=== PATIENT | male | born 1960 | race Caucasian/White ===

== ENCOUNTER 2025-06-04 15:25 | Outpatient (CLI) | payer MEDICARE, SELFPAY ==
--- NOTE | ~2025-06-04 | XR_ITS ---
EXAMINATION: XR chest 2V, 06/04/2025 15:44 CDT HISTORY: Cough COMPARISON: No comparisons available. Technique: 2 views obtained. Findings: The lungs are clear, no effusion. No pneumothorax. Heart is normal size. Mediastinal and hilar contours are within normal limits. Bony thorax no acute abnormality. Impression: No acute cardiopulmonary abnormality. Reviewed, dictated and finalized at location A. Impression: No acute cardiopulmonary abnormality.
== END 2025-06-04 15:26 | disposition home or self-care (01) ==
DX: K21.00 Gastro-esophageal reflux disease with esophagitis, without bleeding (principal); I10 Essential (primary) hypertension; E78.5 Hyperlipidemia, unspecified; R07.9 Chest pain, unspecified; R73.03 Prediabetes
CPT/HCPCS: 71046

== ENCOUNTER 2025-06-24 09:50 | Outpatient (CLI) | payer MEDICARE, SELFPAY ==
--- NOTE | 2025-06-24 | EST_ITS ---
Patient Info Name: John Asencio Age: 64 years : 1960 Gender: Male Ht: 67 in Wt: 204 lbs BSA: 2.12 m2 HR: 75 bpm BP: 141 / 90 mmHg Exam Date: 06/24/2025 10:02 AM Patient Status: O Admit Date: 06/24/2025 Exam Type: CA stress test treadmill A treadmill exercise stress test was performed. Staff Attending Provider: DR. PONCE Exercise Technologist: Magi Ventura Exercise Physician: Nolan Ponce DO Summary 1. 1. Negative Junior exercise stress test for ischemic ST changes by ECG criteria. 2. 2. Reduced functional capacity, achieving 7 METs of workload. 3. 3. Baseline hypertension with hypertensive response to exercise. 4. 4. Appropriate HR response to exercise. 5. 5. Appropriate HR recovery at 1 minute post exercise. 6. 6. No imaging with stress testing. 7. 7. Patient informed of the above results. Protocol: Junior Stress ECG Details Stage: REST Duration (min): 1 min : 49 sec Speed (mph): 0.0 Grade (%): 0 HR (bpm): 73 SBP (mmHg): 141 DBP (mmHg): 90 METS: --- Stage: REST Duration (min): 5 min : 27 sec Speed (mph): 0.0 Grade (%): 0 HR (bpm): 76 SBP (mmHg): 141 DBP (mmHg): 90 METS: --- Stage: STAGE 1 Duration (min): 1 min : 0 sec Speed (mph): 1.7 Grade (%): 10 HR (bpm): 100 SBP (mmHg): 141 DBP (mmHg): 90 METS: --- Stage: STAGE 1 Duration (min): 2 min : 0 sec Speed (mph): 1.7 Grade (%): 10 HR (bpm): 110 SBP (mmHg): 141 DBP (mmHg): 90 METS: --- Stage: STAGE 1 Duration (min): 3 min : 0 sec Speed (mph): 1.7 Grade (%): 10 HR (bpm): 115 SBP (mmHg): 188 DBP (mmHg): 78 METS: --- Stage: STAGE 2 Duration (min): 1 min : 0 sec Speed (mph): 2.5 Grade (%): 12 HR (bpm): 122 SBP (mmHg): 188 DBP (mmHg): 78 METS: --- Stage: STAGE 2 Duration (min): 2 min : 0 sec Speed (mph): 2.5 Grade (%): 12 HR (bpm): 131 SBP (mmHg): 190 DBP (mmHg): 74 METS: --- Stage: STAGE 2 Duration (min): 3 min : 0 sec Speed (mph): 2.5 Grade (%): 12 HR (bpm): 137 SBP (mmHg): 190 DBP (mmHg): 74 METS: --- Stage: STAGE 3 Duration (min): 0 min : 11 sec Speed (mph): 3.4 Grade (%): 14 HR (bpm): 138 SBP (mmHg): 190 DBP (mmHg): 74 METS: --- Stage: RECOVERY Duration (min): 0 min : 48 sec Speed (mph): 0.0 Grade (%): 0 HR (bpm): 120 SBP (mmHg): 220 DBP (mmHg): 70 METS: --- Stage: RECOVERY Duration (min): 1 min : 48 sec Speed (mph): 0.0 Grade (%): 0 HR (bpm): 95 SBP (mmHg): 220 DBP (mmHg): 70 METS: --- Stage: RECOVERY Duration (min): 2 min : 48 sec Speed (mph): 0.0 Grade (%): 0 HR (bpm): 94 SBP (mmHg): 220 DBP (mmHg): 70 METS: --- Stage: RECOVERY Duration (min): 3 min : 48 sec Speed (mph): 0.0 Grade (%): 0 HR (bpm): 89 SBP (mmHg): 170 DBP (mmHg): 77 METS: --- Stage: RECOVERY Duration (min): 4 min : 48 sec Speed (mph): 0.0 Grade (%): 0 HR (bpm): 85 SBP (mmHg): 153 DBP (mmHg): 84 METS: --- Stage: RECOVERY Duration (min): 5 min : 48 sec Speed (mph): 0.0 Grade (%): 0 HR (bpm): 89 SBP (mmHg): 153 DBP (mmHg): 84 METS: --- Stage: RECOVERY Duration (min): 6 min : 48 sec Speed (mph): 0.0 Grade (%): 0 HR (bpm): 86 SBP (mmHg): 150 DBP (mmHg): 85 METS: --- Stage: RECOVERY Duration (min): 6 min : 58 sec Speed (mph): 0.0 Grade (%): 0 HR (bpm): 85 SBP (mmHg): 150 DBP (mmHg): 85 METS: --- Rest HR: 76 bpm Peak HR: 142 bpm Rest Sys BP: 141 mmHg Peak Sys BP: 220 mmHg Max Pred HR: 155 bpm % Max Pred HR: 92 % Target HR: 132 bpm Max RPP: 31,240 bpm*mmHg Huerta Score: -5 BP Response: Patient exhibited a hypertensive response with stress Termination Reason: Reached target heart rate or workload Cardiac Symptoms: Shortness of breath Max ST Seg Deviation: 2.20 mm Total Time: 6 min : 11 sec Rest Shah BP: 90 mmHg Peak Shah BP: 70 mmHg Angina Score: None Total METS: 7.4 Resting ECG Sinus rhythm. Stress ECG No ST changes. Arrhythmias None. Report Signatures
== END 2025-06-24 09:51 | disposition home or self-care (01) ==
DX: K21.00 Gastro-esophageal reflux disease with esophagitis, without bleeding (principal); I10 Essential (primary) hypertension; E78.5 Hyperlipidemia, unspecified; R73.03 Prediabetes; R07.9 Chest pain, unspecified
CPT/HCPCS: 93017